=== PATIENT | female | born 1975 | race Caucasian/White ===

== ENCOUNTER 2019-10-10 09:26 | Emergency (ER) | payer OTHER ==
[~2019-10-10] VITALS: Ht 172.7 cm; Wt 108.9 kg
[2019-10-10] MEDS ORDERED: TORADOL 10 MG T10 MG PO (11:15)
[2019-10-10] MEDS ORDERED: DIAZEPAM 5 MG5 M1 PO (11:15)
[2019-10-10] MEDS ORDERED: HYDROCODON-ACE1 EAC7 PO (11:15)
[2019-10-10 11:35] VITALS: BP 111/62
== END 2019-10-10 11:36 | disposition home or self-care (01) ==
LOC: M.ERS 09:26
DX: G24.3 Spasmodic torticollis (principal); M54.6 Pain in thoracic spine; Z88.5 Allergy status to narcotic agent; Z85.828 Personal history of other malignant neoplasm of skin

== ENCOUNTER → 2020-02-04 | Outpatient (CLI) | payer OTHER ==
[~2020-02-04] MED LIST: DIAZEPAM 5 MG5 M1 PO; HYDROCODON-ACE1 EAC7 PO; TORADOL 10 MG T10 MG PO
== END ==
LOC: M.LAB 10:32
DX: Z11.59 Encounter for screening for other viral diseases (principal); Z20.828 Contact with and (suspected) exposure to other viral communicable diseases